=== PATIENT | female | born 1985 | race Two or more races ===

== ENCOUNTER 2018-10-17 13:14 | Emergency (ER) | payer OTHER ==
--- NOTE | 2018-10-17 14:23 | EDPHY ---
H & P Smoking Status: Never smoked Time Seen by Provider: 10/17/18 14:22 HPI/ROS: Chief complaint. Vaginal bleeding HPI. 33-year-old female 1 para 0 with vaginal bleeding that started heavily in the past hour. She has been having spotting the last 2 days with some cramping. However in the last lower increased vaginal bleeding. She 7 weeks . Visiting from [place]. No urinary symptoms. No fever. No chest pain or shortness of breath. Cramping and bleeding seemed to be better now. ROS 10 systems were reviewed and negative with the exception of the elements mentioned in the history of present illness (Corona Galindo) Past Medical/Surgical History: Asthma, breast reduction (Corona Galindo) Social History: , nonsmoker, no alcohol (Corona Galindo) Physical Exam: General Appearance: Pleasant well-developed female mild distress vital signs are stable Eyes: Pupils equal and round no pallor or injection. ENT, Mouth: Mucous membranes are moist. Respiratory: There are no retractions, lungs are clear to auscultation. Cardiovascular: Regular rate and rhythm. Gastrointestinal: Abdomen is soft and nontender, no masses, bowel sounds normal. No particular tenderness in the suprapubic and adnexal area Neurological: Awake and alert, sensory and motor exams grossly normal. Skin: Warm and dry, no rashes. Musculoskeletal: Neck is supple nontender. Extremities symmetrical, full range of motion. Psychiatric: Patient is oriented X 3, there is no agitation. (Corona Galindo) Constitutional: Initial Vital Signs Temperature (C) 36.9 C 10/17/18 13:23 Heart Rate 73 10/17/18 13:23 Respiratory Rate 16 10/17/18 13:23 Blood Pressure 136/81 H 10/17/18 13:23 O2 Sat (%) 98 10/17/18 13:23 O2 Delivery Mode Room Air Allergies/Adverse Reactions: No Known Allergies Allergy (Unverified 10/17/18 13:22) Home Medications: Medication Instructions Recorded Breo Ellipta 100-25 Mcg INH 10/17/18 10/17/18 Medical Decision Making - Diagnostics Imaging Results: Imaging Impressions Pelvic/Renal Ultrasound 10/17/18 14:22 Impression: 1. demise with a 1 x 1 cm gestational sac identified in the endocervical canal near the cervix. 2. Left corpus luteum cyst measuring 1.6 x 1.5 x 1.4 cm. 3. No ovarian torsion. Findings and recommendations discussed with Emergency Department physician, Dr. David Lugo at 1634 hours on October 17, 2018. Final report concurs with initial preliminary interpretation. Procedures: IV normal saline (Corona Galindo) Differential Diagnosis: I considered a threatened miscarriage, complete miscarriage, ectopic ( Corona Galindo) Other Provider: Care assumed from Dr. Galindo at 3:40 p.m., ultrasound pending. Blood type is O positive. Quantitative is 890. 1635: IUP in endocervical canal, likely miscarriage. Isuani, L corpus luteum cyst, no torsion. Results discussed with the patient at this time, stable for discharge. She did have a another episode of large amount of bleeding after ultrasound, likely completed her miscarriage. (David Lugo) Care Turn Over: care to Dr. Lugo at 3:30 pm (Corona Galindo) - Data Points Laboratory Results: Laboratory Results 10/17/18 14:26 10/17/18 14:26 10/17/18 10/17/18 10/17/18 15:30 14:26 14:26 WBC RBC Hgb Hct MCV MCH MCHC RDW Plt Count MPV Neut % (Auto) Lymph % (Auto) Patrick % (Auto) Eos % (Auto) Baso % (Auto) Nucleat RBC Rel Count Absolute Neuts (auto) Absolute Lymphs (auto) Absolute Monos (auto) Absolute Eos (auto) Absolute Basos (auto) Absolute Nucleated RBC Immature Gran % Immature Gran # Sodium Potassium Chloride Carbon Dioxide Anion Gap BUN Creatinine Estimated GFR Glucose Calcium Beta HCG, Quant 891.81 mIU/mL H mIU/mL (0.00-4.83) Urine Color PALE YELLOW Urine Appearance CLEAR Urine pH 7.0 (5.0-7.5) Ur Specific [place] 1.008 (1.002-1.030) Urine Protein NEGATIVE (NEGATIVE) Urine Ketones NEGATIVE (NEGATIVE) Urine Blood 3+ H (NEGATIVE) Urine Nitrate NEGATIVE (NEGATIVE) Urine Bilirubin NEGATIVE (NEGATIVE) Urine Urobilinogen NEGATIVE EU EU (0.2-1.0) Ur Leukocyte Esterase NEGATIVE (NEGATIVE) Urine RBC 50-182 /hpf H /hpf (0-3) Urine WBC 1-3 /hpf /hpf (0-3) Ur Epithelial Cells NONE SEEN /lpf /lpf (NONE-1+) Urine Mucus TRACE /lpf /lpf (NONE-1+) Urine Glucose NEGATIVE (NEGATIVE) Patient ABO/Rh O POSITIVE 10/17/18 10/17/18 14:26 14:26 WBC 8.20 10^3/uL 10^3/uL (3.80-9.50) RBC 4.53 10^6/uL 10^6/uL (4.18-5.33) Hgb 13.5 g/dL g/dL (12.6-16.3) Hct 40.2 % % (38.0-47.0) MCV 88.7 fL fL (81.5-99.8) MCH 29.8 pg pg (27.9-34.1) MCHC 33.6 g/dL g/dL (32.4-36.7) RDW 13.1 % % (11.5-15.2) Plt Count 274 10^3/uL 10^3/uL (150-400) MPV 10.3 fL fL (8.7-11.7) Neut % (Auto) 54.9 % % (39.3-74.2) Lymph % (Auto) 32.0 % % (15.0-45.0) Patrick % (Auto) 9.0 % % (4.5-13.0) Eos % (Auto) 2.9 % % (0.6-7.6) Baso % (Auto) 1.0 % % (0.3-1.7) Nucleat RBC Rel Count 0.0 % % (0.0-0.2) Absolute Neuts (auto) 4.50 10^3/uL 10^3/uL (1.70-6.50) Absolute Lymphs (auto) 2.62 10^3/uL 10^3/uL (1.00-3.00) Absolute Monos (auto) 0.74 10^3/uL 10^3/uL (0.30-0.80) Absolute Eos (auto) 0.24 10^3/uL 10^3/uL (0.03-0.40) Absolute Basos (auto) 0.08 10^3/uL 10^3/uL (0.02-0.10) Absolute Nucleated RBC 0.00 10^3/uL 10^3/uL (0-0.01) Immature Gran % 0.2 % % (0.0-1.1) Immature Gran # 0.02 10^3/uL 10^3/uL (0.00-0.10) Sodium 135 mEq/L mEq/L (135-145) Potassium 4.1 mEq/L mEq/L (3.5-5.2) Chloride 103 mEq/L mEq/L (97-110) Carbon Dioxide 22 mEq/l mEq/l (22-31) Anion Gap 10 mEq/L mEq/L (6-14) BUN 10 mg/dL mg/dL (7-23) Creatinine 0.6 mg/dL mg/dL (0.6-1.0) Estimated GFR > 60 Glucose 93 mg/dL mg/dL (70-100) Calcium 9.4 mg/dL mg/dL (8.5-10.4) Beta HCG, Quant Urine Color Urine Appearance Urine pH Ur Specific [place] Urine Protein Urine Ketones Urine Blood Urine Nitrate Urine Bilirubin Urine Urobilinogen Ur Leukocyte Esterase Urine RBC Urine WBC Ur Epithelial Cells Urine Mucus Urine Glucose Patient ABO/Rh Medications Given: Discontinued Medications Sodium Chloride (Ns) 1,000 mls @ 0 mls/hr IV EDNOW ONE; Wide Open PRN Reason: Protocol Stop: 10/17/18 14:33 Last Admin: 10/17/18 14:40 Dose: 1,000 mls Departure - Departure Disposition: Home, Routine, Self-Care Clinical Impression: Incomplete miscarriage Condition: Good Instructions: Miscarriage (ED) Referrals: MAN FRAZIER [Other] - As per Instructions
[2018-10-17] MEDS ORDERED: NS 1,000 ML IV ONE (14:32)
[2018-10-17 14:43] LABS: PLATELET COUNT 274 10^3/uL (150-400)
[2018-10-17 17:02] VITALS: BP 115/74
== END 2018-10-17 17:04 | disposition home or self-care (01) ==
DX: O03.4 Incomplete spontaneous abortion without complication (principal); O99.281 Endocrine, nutritional and metabolic diseases complicating pregnancy, first trimester; Z3A.01 Less than 8 weeks gestation of pregnancy